=== PATIENT | female | born 1965 | race Caucasian/White ===

== ENCOUNTER 2024-07-14 10:52 | Inpatient (IN) | payer BC, SELFPAY ==
[2024-07-14] VITALS (8 sets, daily range): BP systolic 120–131; BP diastolic 47–76; PULSE 112–122; RESP 16–22; TEMP 36.2–36.6; O2SAT 93–97; BMI 25.4; BMI 25.9
--- NOTE | ~2024-07-14 | XR_ITS ---
XR chest 2V 07/14/2024 12:06 Indication: Redness of breath, cough and congestion Procedure: 2 view chest Comparison: No prior studies for comparison. Findings: Left upper lobe pneumonia. Heart size normal. Right lung clear. No pleural effusion or pneu mothorax. Impression: 1: Left upper lobe pneumonia. Reviewed, dictated and finalized at location B. Impression: 1: Left upper lobe pneumonia.
--- NOTE | 2024-07-14 11:00 | ECG_ITS ---
Test Date: 2024-07-14 11:04:56 Measurements Intervals [place] Rate: 110 P: 53 MN: 128 QRS: -42 QRSD: 99 T: 69 QT: 328 QTc: 444 Interpretive Statements SINUS TACHYCARDIA POSSIBLE LEFT ATRIAL ENLARGEMENT [-0.1mV P WAVE IN V1/V2] MARKED LEFT AXIS DEVIATION [QRS AXIS < -30] POSSIBLE ANTERIOR MYOCARDIAL INFARCTION , PROBABLY OLD [30 ms Q WAVE IN V3/V4, OR R < 0.2 mV IN V4] No previous ECG available for comparison Electronically Signed On 07-14-2024 13:44:44 CDT by Farooq Shea M.D.
[2024-07-14 11:19] LABS: Basophils Absolute Auto 0.1 K/mm3 (0.0-0.1); Basophils Percent Auto 0.6 % (0.2-1.2); Hematocrit 41.8 % (37.0-47.0); Hemoglobin 14.4 g/dL (12.0-15.0); Immature Granulocyte Absolute 0.06 K/mm3 (0.00-0.031); Immature Granulocyte Percent A 0.7 % (0-0.5); Lymphocytes Absolute Auto 0.93 K/mm3 (0.9-3.2); Mean Corpuscular HGB Conc 34.4 g/dl (32-36); Mean Corpuscular Hemoglobin 29.1 pg (26-34); Mean Corpuscular Volume 84.4 fl (80-100); Mean Platelet Volume 10.3 fl (7.4-10.4); Monocytes Absolute Auto 0.6 K/mm3 (0.1-0.6); Monocytes Percent Auto 7.2 % (2.6-8.5); Neutrophils Absolute Auto 6.8 K/mm3 (1.3-6.7); Neutrophils Percent Auto 80.5 % (45.5-73.1); Platelet Count Result 284 k/mm3 (150-375); Red Blood Count 4.95 M/mm3 (4.2-5.4); Red Cell Distribution Width 13.2 % (11.5-14.5); White Blood Count 8.5 K/mm3 (4.5-10.0)
[2024-07-14 11:30] LABS: Alanine Aminotransferase 61 U/L (6-35); Albumin Level 4.5 g/dL (3.5-5.1); Alkaline Phosphatase 130 U/L (38-126); Anion Gap 13 mmol/L (4-12); Aspartate Amino Transferase 64 U/L (14-36); Bilirubin,Total 0.7 mg/dL (0.2-1.3); Blood Urea Nitrogen 14 mg/dL (7-17); Carbon Dioxide 29 mmol/L (22-30); Chloride 87 mmol/L (98-107); Estimated CRCL calculation 61 ml/min; Estimated Glomerular Filt Rate > 60; Glucose 318 mg/dL (65-110); Sodium 129 mmol/L (137-145)
--- NOTE | 2024-07-14 13:59 | ED.SOB ---
HPI - SOB/Dyspnea General Chief Complaint: Shortness of Breath/Dyspnea Stated Complaint: cold sx, fever sent by urgent care Time Seen by Provider: 07/14/24 13:37 History of Present Illness HPI Narrative: 58-year-old female presenting with cough and shortness of breath. Patient states that for the last week or so she has been coughing and she has had decreased appetite. States that she has lost 5+ lb is she is simply not wanted to eat. She feels generally weak as well. She went to urgent care today and was found to be tachycardic in the 120s so she was advised to come to the ER. She denies any pain. No further complaints. Related Data Home Medications Medication Instructions Recorded Confirmed atorvastatin 10 mg tablet 10 mg PO HS 03/02/22 07/14/24 dulaglutide 1.5 mg/0.5 mL 1.5 mg subcut WEEKLY 03/02/22 07/14/24 subcutaneous pen injector (Trulicity) lisinopril 20 1 tablet PO BID 03/02/22 07/14/24 mg-hydrochlorothiazide 12.5 mg tablet metformin 500 mg tablet,extended 500 mg PO QACBREAK 03/02/22 07/14/24 release 24 hr sitagliptin phosphate 25 mg tablet 25 mg PO DAILY 06/16/23 07/14/24 (Januvia) acetaminophen 500 mg tablet 1,000 mg PO Q8H PRN pain or fever 07/14/24 07/14/24 alendronate 70 mg tablet 70 mg PO WEEKLY 07/14/24 07/14/24 calcium 600 mg (as 1 tablet PO DAILY 07/14/24 07/14/24 carbonate)-vitamin D3 10 mcg (400 unit) tablet metformin 500 mg tablet,extended 1,500 mg PO QACDINNER 07/14/24 07/14/24 release 24 hr multivit with minerals-iron 18 1 tablet PO DAILY 07/14/24 07/14/24 mg-folic ac 400 mcg-vit K 25 mcg tablet (Adults Multivitamin) Allergies Allergy/AdvReac Type Severity Reaction Status Date / Time Penicillins Allergy Mild HIVES Verified 06/16/23 07:58 Review of Systems Review of Systems: All systems reviewed & are unremarkable except as noted in HPI and below PMFSH Past Medical History Medical History (Updated 07/15/24 @ 16:40 by Vickie Hendrix MD) Anemia Dyslipidemia Heart murmur Hypertension Osteopenia Type 2 diabetes mellitus Surgical History Surgical History History of x2 1986&1987 History of dilation and curettage 03/12/09 dx hscope/d&c--menorrhagia, uterine leiomyomata History of hysterectomy, supracervical abdominal (subtotal) (05/16/09) abdominal supracx hyst w/LSO--leiomyomata, adenomyosis Family History Family History Father Heart disease Diabetes mellitus Hypertension Cerebrovascular accident Malignant neoplasm of lung Grandparent Acute myocardial infarction maternal grandfather Mother Malignant lymphoma Social History Social History (Updated 07/14/24 @ 17:27 by Teri Wisdom PA-C) Social History: Surrogate medical decision maker: Yassine Pang, spouse. Code status: Full code. Smoking status: Never smoker Second hand tobacco smoke exposure: No Alcohol intake: never Substance use: never Substance use type: does not use Do You Feel Safe in your Home?: Yes Lack of Transportation: No Lack of Food: Never True Current Housing: I Have Housing Concerned About Future Housing: No Difficulty Paying Gas/Electric Bills: No Difficulty Paying for Meds: No Currently Unemployed: No Education: High School Diploma/GED Difficulty w/ Childcare or Family Care: No Spiritual care concerns: No Exam Narrative: GENERAL: Ill-appearing, no acute distress, pleasant cooperative HEAD: Normocephalic, atraumatic. EYES: PERRLA and EOMI. ENT: Mucous membranes tacky NECK: Supple. CHEST: No respiratory distress. +adventitious sounds bilateral bases HEART: tachycardic, regular rhythm ABDOMEN: Soft, nontender, nondistended EXTREMITIES: Normal range of motion. No edema. SKIN: Warm, dry, no rash. NEURO: Alert and oriented x3. PSYCH: Normal mood and affect. Course Vit
[2024-07-14] MEDS: POTASSIUM CHLORIDE 20 MEQ PACKET (FOR LIQUID) 40 MEQ PO (14:20)
[2024-07-14] MEDS: SODIUM CHLORIDE 0.9% IV 1,000 ML 999 ML IV CONT ×2 (14:20)
[2024-07-14] MEDS: DOXYCYCLINE 100 MG/NS 100 ML 100 MG/100 ML BAG IVPB (15:21)
[2024-07-14] MEDS: POTASSIUM CHLORIDE 20 MEQ ER TABLET 40 MEQ PO (17:10)
--- NOTE | 2024-07-14 17:15 | PM.IMHP ---
H&P: HPI History of Present Illness Date/Time: 07/14/24 17:15 Chief Complaint: Shortness of breath, fever, tachycardia. Narrative: This is a 58-year-old female with hypertension, dyslipidemia, and type 2 diabetes presented to the emergency department from urgent care with shortness of breath, fever, and tachycardia. The patient provides the following history. She has not been feeling well for about a week with symptoms to include generalized malaise and weakness, cough, shortness of breath, and poor appetite. Her fever has been as high as 102? F. She went to urgent care today where she tested negative for COVID and influenza and she was directed to the emergency department as she was tachycardic. In the ED: Vital signs on arrival include a temperature of 97.6?, blood pressure 130/61, pulse 112, respiratory rate 17, pulse ox 97% on room air. Labs were significant for WBC count of 8.5, sodium 129, potassium 3.0, chloride 87, anion gap 13, BUN 14, creatinine 0.60, glucose 318, AST 64, ALT 61, alkaline phosphatase 130. Chest x-ray showed left upper lobe pneumonia. EKG interpretation per the tumbling and rolling supervisor: Sinus tachycardia, possible left atrial enlargement, marked left axis deviation, possible anterior myocardial infarction, probably old. Review of Systems Review of Systems: 12 systems were reviewed and are negative except for as per HPI. [facility] Past Medical History Medical History (Updated 07/14/24 @ 17:23 by Teri Wisdom PA-C) Anemia Dyslipidemia Heart murmur Hypertension Osteopenia Type 2 diabetes mellitus Surgical History Surgical History History of x2 1986&1987 History of dilation and curettage 03/12/09 dx hscope/d&c--menorrhagia, uterine leiomyomata History of hysterectomy, supracervical abdominal (subtotal) (05/16/09) abdominal supracx hyst w/LSO--leiomyomata, adenomyosis Family History Family History Father Heart disease Diabetes mellitus Hypertension Cerebrovascular accident Malignant neoplasm of lung Grandparent Acute myocardial infarction maternal grandfather Mother Malignant lymphoma Social History Social History (Updated 07/14/24 @ 17:27 by Teri Wisdom PA-C) Social History: Surrogate medical decision maker: Yassine Pang, spouse. Code status: Full code. Smoking status: Never smoker Second hand tobacco smoke exposure: No Alcohol intake: never Substance use: never Substance use type: does not use Lack of Transportation: No Lack of Food: Never True Current Housing: I Have Housing Concerned About Future Housing: No Difficulty Paying Gas/Electric Bills: No Difficulty Paying for Meds: No Currently Unemployed: No Education: High School Diploma/GED Difficulty w/ Childcare or Family Care: No Meds Home Medications and Allergies Home Medications Medication Instructions Recorded Confirmed Type atorvastatin 10 mg tablet 10 mg PO DAILY 03/02/22 06/16/23 History dulaglutide 1.5 mg/0.5 mL 1.5 mg subcut WEEKLY 03/02/22 06/16/23 History subcutaneous pen injector (Trulicity) lisinopril 20 1 tablet PO DAILY 03/02/22 06/16/23 History mg-hydrochlorothiazide 12.5 mg tablet metformin 500 mg tablet,extended 500 mg PO DAILY 03/02/22 06/16/23 History release 24 hr sitagliptin phosphate 25 mg tablet 25 mg PO DAILY 06/16/23 06/16/23 History (Januvia) Allergies Allergy/AdvReac Type Severity Reaction Status Date / Time Penicillins Allergy Mild HIVES Verified 06/16/23 07:58 Vital Signs Vital Signs - 24 hr 07/14/24 10:54 07/14/24 14:16 07/14/24 14:18 Temperature 97.6 F 97.9 F Pulse Rate 112 H 122 H Respiratory Rate 17 20 Blood Pressure 130/61 120/66 Pulse Oximetry 97 96 Oxygen Delivery Room Air Room Air 07/14/24 14:45 07/14/24 15:53 Temperature Pulse Rate 114 H 117 H Respiratory R
--- NOTE | 2024-07-14 17:36 | ADMGEN ---
This patient, Cora Pang, was admitted to Medical Room 346-01. Patient/family oriented to hospital policies and general routines including ID bracelet, bed and alarms, visiting hours, pain management, procedures, bathroom and other care routines, personal items, smoking policy, room service/diet, and visiting hours. Information on how to activate the Rapid Response Team has been discussed. Patient/Family are encouraged to report perceived risks to care and to ask questions if they do not understand what they are told or what they should do.
[2024-07-14 18:28] LABS: Glucose Point of Care 219 mg/dl (65-105)
[2024-07-14] MEDS: ACETAMINOPHEN 325 MG TABLET 650 MG PO (18:36)
[2024-07-14 19:06] LABS: Influenza A QL RT-PCR Negative (Negative); Influenza B QL RT-PCR Negative (Negative); RSV RNA, RT-PCR Negative (Negative); SARS-CoV-2 RNA PCR Negative (Negative)
[2024-07-14 19:14] LABS: Lactic Acid Reflex 1.4 mmol/L (0.7-2.0)
[2024-07-14 19:21] LABS: Anion Gap 10 mmol/L (4-12); Blood Urea Nitrogen 11 mg/dL (7-17); Calcium 7.8 mg/dL (8.4-10.2); Carbon Dioxide 26 mmol/L (22-30); Chloride 93 mmol/L (98-107); Estimated CRCL calculation 99 ml/min; Estimated Glomerular Filt Rate > 60; Glucose 212 mg/dL (65-110); Potassium 3.5 mmol/L (3.4-5.0); Sodium 129 mmol/L (137-145)
[2024-07-14 19:45] LABS: MRSA (PCR) NOT DETECTED (NOT DETECTE)
[2024-07-14 19:46] LABS: Hepatitis B Surface Antigen Negative (Negative)
[2024-07-14 19:52] LABS: HAV RESULT Negative (Negative); Hepatitis B Core IgM Result Negative (Negative)
[2024-07-14 19:58] LABS: Hemoglobin A1C 9.4 % (<5.7)
[2024-07-14 20:04] LABS: Hepatitis C Virus Antibody Negative (Negative)
[2024-07-14 20:16] LABS: Thyroid Stimulating Hormone Reflex 0.373 uIU/mL (0.465-4.68)
[2024-07-14 21:58] LABS: Free T4 Free Thyroxine Reflex 1.33 ng/dL (0.78-2.19)
[2024-07-14] MEDS: INSULIN ASPART (*BKC) 100 UNITS/ML 8 UNITS SUB-Q (22:06)
[2024-07-14] MEDS: SODIUM CHLORIDE 0.9% IV 1,000 ML 80 ML IV CONT (22:07)
[2024-07-14] MEDS: ATORVASTATIN 10 MG TABLET PO (22:08)
[2024-07-14] MEDS: lisinopriL 20 MG TABLET PO (22:08)
[2024-07-14] MEDS: guaiFENesin 12 HR 600 MG TABCR 1200 MG PO (22:08)
[2024-07-14 23:01] LABS: Total Triiodothyronine (T3) 0.97 NG/ML (0.97-1.69)
[2024-07-15] VITALS (9 sets, daily range): BP systolic 130–151; BP diastolic 59–62; PULSE 95–118; RESP 16–19; TEMP 36.4–37; O2SAT 94–96
[2024-07-15] MEDS: DEXTROMETHORPHAN POLISTIREX 60 MG/10 ML SYRINGE PO ×2 (01:45→15:32)
[2024-07-15] MEDS: DOXYCYCLINE HYCLATE 100 MG TABLET PO ×2 (01:46→15:30)
[2024-07-15 05:51] LABS: Hematocrit 34.6 % (37.0-47.0); Hemoglobin 11.6 g/dL (12.0-15.0); Mean Corpuscular HGB Conc 33.5 g/dl (32-36); Mean Corpuscular Hemoglobin 28.8 pg (26-34); Mean Corpuscular Volume 85.9 fl (80-100); Platelet Count Result 232 k/mm3 (150-375); Red Blood Count 4.03 M/mm3 (4.2-5.4); Red Cell Distribution Width 13.3 % (11.5-14.5); White Blood Count 6.4 K/mm3 (4.5-10.0)
[2024-07-15 06:03] LABS: Alanine Aminotransferase 51 U/L (6-35); Albumin Level 3.5 g/dL (3.5-5.1); Alkaline Phosphatase 119 U/L (38-126); Anion Gap 9 mmol/L (4-12); Aspartate Amino Transferase 58 U/L (14-36); Bilirubin,Total 0.7 mg/dL (0.2-1.3); Blood Urea Nitrogen 10 mg/dL (7-17); Calcium 7.7 mg/dL (8.4-10.2); Carbon Dioxide 24 mmol/L (22-30); Chloride 96 mmol/L (98-107); Estimated CRCL calculation 98 ml/min; Estimated Glomerular Filt Rate > 60; Glucose 214 mg/dL (65-110); Potassium 3.4 mmol/L (3.4-5.0); Sodium 129 mmol/L (137-145)
--- NOTE | 2024-07-15 08:07 | P.PNIM_ITS ---
Progress Note: A&P Assessment and Plan (1) Left upper lobe pneumonia: Code(s): J18.9 - Pneumonia, unspecified organism Status: Acute Assessment and Plan: On doxycycline and ceftriaxone Sputum for culture pending Blood cultures pending (2) Tachycardia: Code(s): R00.0 - Tachycardia, unspecified Status: Acute Assessment and Plan: Likely secondary to infection Patient not on home beta blockers Telemetry monitoring EKG showing sinus rhythm IVF for hydration (3) Electrolyte abnormality: Code(s): E87.8 - Other disorders of electrolyte and fluid balance, not elsewhere classified Status: Acute Assessment and Plan: Daily BMP Replete if needed (4) Elevated transaminase level: Code(s): R74.01 - Elevation of levels of liver transaminase levels Status: Acute Assessment and Plan: abdominal exam is benign and these can just be monitored as an outpatient (5) Type 2 diabetes mellitus: Code(s): E11.9 - Type 2 diabetes mellitus without complications Status: Acute Assessment and Plan: Hemoglobin A1c 9.4 Hold home medications Long-acting and SSI Goal for blood sugars appear under 200 during hospitalization Diabetic diet informatics educator Patient will need to follow up her analytical clerk for medication adjustments (6) Hypertension: Code(s): I10 - Essential (primary) hypertension Status: Acute Assessment and Plan: Restart home medications Holding home hydrochlorothiazide due to dehydration (7) Dyslipidemia: Code(s): E78.5 - Hyperlipidemia, unspecified Status: Acute Assessment and Plan: Restart her home medications Plan She has left upper lobe pneumonia for which she has been started on azithromycin and ceftriaxone. Attempt sputum for culture. Check Legionella pneumococcal antigens as well as mycoplasma IgM. Potassium will be replaced and monitored. Hold hydrochlorothiazide for now. AST and ALT are a bit elevated but her abdominal exam is benign and these can just be monitored as an outpatient. Time Spent With Patient Time with patient: Greater than 35 minutes Subjective Date/time seen: 07/15/24 08:07 Interval history: 58-year-old female with hypertension, dyslipidemia, and type 2 diabetes presented to the emergency department from urgent care with shortness of breath, fever, and tachycardia. Found to have left lower lobe pneumonia. Patient given 2 L of IV fluids in the ED yesterday patient still tachycardic this AM, IVF ordered On Doxycycline and ceftriaxone Review of Systems Review of Systems: 12 systems were reviewed and are negativ e except for as per HPI. Objective Data Vital Signs Vital Signs: Vital Signs - 24 hr 07/14/24 10:54 07/14/24 1
--- NOTE | 2024-07-15 08:07 | PM.IMPN ---
Progress Note: A&P Assessment and Plan (1) Left upper lobe pneumonia: Code(s): J18.9 - Pneumonia, unspecified organism Status: Acute Assessment and Plan: On doxycycline and ceftriaxone Sputum for culture pending Blood cultures pending (2) Tachycardia: Code(s): R00.0 - Tachycardia, unspecified Status: Acute Assessment and Plan: Likely secondary to infection Patient not on home beta blockers Telemetry monitoring EKG showing sinus rhythm IVF for hydration (3) Electrolyte abnormality: Code(s): E87.8 - Other disorders of electrolyte and fluid balance, not elsewhere classified Status: Acute Assessment and Plan: Daily BMP Replete if needed (4) Elevated transaminase level: Code(s): R74.01 - Elevation of levels of liver transaminase levels Status: Acute Assessment and Plan: abdominal exam is benign and these can just be monitored as an outpatient (5) Type 2 diabetes mellitus: Code(s): E11.9 - Type 2 diabetes mellitus without complications Status: Acute Assessment and Plan: Hemoglobin A1c 9.4 Hold home medications Long-acting and SSI Goal for blood sugars appear under 200 during hospitalization Diabetic diet community health educator Patient will need to follow up her emissions testing technician for medication adjustments (6) Hypertension: Code(s): I10 - Essential (primary) hypertension Status: Acute Assessment and Plan: Restart home medications Holding home hydrochlorothiazide due to dehydration (7) Dyslipidemia: Code(s): E78.5 - Hyperlipidemia, unspecified Status: Acute Assessment and Plan: Restart her home medications Plan She has left upper lobe pneumonia for which she has been started on azithromycin and ceftriaxone. Attempt sputum for culture. Check Legionella pneumococcal antigens as well as mycoplasma IgM. Potassium will be replaced and monitored. Hold hydrochlorothiazide for now. AST and ALT are a bit elevated but her abdominal exam is benign and these can just be monitored as an outpatient. Time Spent With Patient Time with patient: Greater than 35 minutes Subjective Date/time seen: 07/15/24 08:07 Interval history: 58-year-old female with hypertension, dyslipidemia, and type 2 diabetes presented to the emergency department from urgent care with shortness of breath, fever, and tachycardia. Found to have left lower lobe pneumonia. Patient given 2 L of IV fluids in the ED yesterday patient still tachycardic this AM, IVF ordered On Doxycycline and ceftriaxone Review of Systems Review of Systems: 12 systems were reviewed and are negative except for as per HPI. Objective Data Vital Signs Vital Signs: Vital Signs - 24 hr 07/14/24 10:54 07/14/24 14:16 07/14/24 14:18 Temperature 97.6 F 97.9 F Pulse Rate 112 H 122 H Respiratory Rate 17 20 Blood Pressure 130/61 120/66 Pulse Oximetry 97 96 Oxygen Delivery Room Air Room Air 07/14/24 14:45 07/14/24 15:53 07/14/24 17:16 Temperature Pulse Rate 114 H 117 H 116 H Respiratory Rate 22 H 22 H 16 Blood Pressure 126/64 126/76 Pulse Oximetry 95 93 96 Oxygen Delivery 07/14/24 18:30 07/14/24 20:00 07/14/24 22:26 Temperature 97.2 F L Pulse Rate 120 H Respiratory Rate Blood Pressure Pulse Oximetry Oxygen Delivery Room Air 07/14/24 22:40 07/14/24 20:00 07/15/24 00:00 Temperature 97.2 F L Pulse Rate 113 H 107 H Respiratory Rate 16 Blood Pressure 131/47 L Pulse Oximetry 93 Oxygen Delivery Room Air 07/15/24 04:40 07/15/24 05:32 Temperature 97.6 F Pulse Rate 111 H 117 H Respiratory Rate 16 Blood Pressure 151/62 H Pulse Oximetry 94 Oxygen Delivery Intake/Output Intake/Output: Intake & Output 07/12/24 07/13/24 07/14/24 07/15/24 23:59 23:59 23:59 23:59 Intake Total 2372 600 Output Total 700 700 Balance 1672 -100 Meds/Results
[2024-07-15 08:13] LABS: Glucose Point of Care 377 mg/dl (65-105)
[2024-07-15 08:13] LABS: Glucose Point of Care 146 mg/dl (65-105)
[2024-07-15 08:33] LABS: Glucose Point of Care 205 mg/dl (65-105)
[2024-07-15] MEDS: MULTIVITAMINS /C LUTEIN (CENTRUM SILVER) TABLET *BKC 1 TAB PO (08:59)
[2024-07-15] MEDS: ENOXAPARIN 40 MG/0.4 ML SYRINGE SUB-Q (08:59)
[2024-07-15] MEDS: CALCIUM/VITAMIN D 500 MG/5 MCG (200 I.U.) TABLET PO (08:59)
[2024-07-15] MEDS: guaiFENesin 12 HR 600 MG TABCR 1200 MG PO ×2 (08:59→21:22)
[2024-07-15] MEDS: lisinopriL 20 MG TABLET PO ×2 (09:00→21:22)
[2024-07-15] MEDS: SITagliptin PHOSPHATE 25 MG TABLET PO (09:00)
[2024-07-15] MEDS: INSULIN GLARGINE (*BKC) 100 UNITS/ML 9 UNITS SUB-Q (09:02)
[2024-07-15] MEDS: ACETAMINOPHEN 325 MG TABLET 650 MG PO ×2 (09:08→21:28)
[2024-07-15 12:13] LABS: Glucose Point of Care 206 mg/dl (65-105)
[2024-07-15] MEDS: INSULIN ASPART (*BKC) 100 UNITS/ML SUB-Q ×3 (12:31→21:22)
[2024-07-15] MEDS: SODIUM CHLORIDE 0.9% IV 1,000 ML 100 ML IV CONT (13:33)
[2024-07-15 17:30] LABS: Glucose Point of Care 206 mg/dl (65-105)
[2024-07-15] MEDS: ATORVASTATIN 10 MG TABLET PO (21:22)
[2024-07-16] VITALS: PULSE 92
[2024-07-16 01:28] LABS: Glucose Point of Care 270 mg/dl (65-105)
[2024-07-16] MEDS: DOXYCYCLINE HYCLATE 100 MG TABLET PO (03:37)
[2024-07-16 04:00] VITALS: PULSE 92
[2024-07-16 05:53] VITALS: BP 129/53; PULSE 93; RESP 16; TEMP 36.1; O2SAT 94
[2024-07-16] MEDS: DEXTROMETHORPHAN POLISTIREX 60 MG/10 ML SYRINGE PO (06:16)
[2024-07-16 08:00] VITALS: PULSE 100
[2024-07-16 08:44] LABS: Glucose Point of Care 204 mg/dl (65-105)
--- NOTE | 2024-07-16 08:44 | P.PNIM_ITS ---
Progress Note: A&P Assessment and Plan (1) Left upper lobe pneumonia: Code(s): J18.9 - Pneumonia, unspecified organism Status: Acute Assessment and Plan: On doxycycline and ceftriaxone Sputum for culture pending Blood cultures pending (2) Tachycardia: Code(s): R00.0 - Tachycardia, unspecified Status: Acute Assessment and Plan: Likely secondary to infection Patient not on home beta blockers Telemetry monitoring EKG showing sinus rhythm IVF for hydration (3) Electrolyte abnormality: Code(s): E87.8 - Other disorders of electrolyte and fluid balance, not elsewhere classified Status: Acute Assessment and Plan: Daily BMP Replete if needed (4) Elevated transaminase level: Code(s): R74.01 - Elevation of levels of liver transaminase levels Status: Acute Assessment and Plan: abdominal exam is benign and these can just be monitored as an outpatient (5) Type 2 diabetes mellitus: Code(s): E11.9 - Type 2 diabetes mellitus without complications Status: Acute Assessment and Plan: Hemoglobin A1c 9.4 Hold home medications Long-acting and SSI Goal for blood sugars appear under 200 during hospitalization Diabetic diet telehealth nurse educator Patient will need to follow up her wash crew person for medication adjustments (6) Hypertension: Code(s): I10 - Essential (primary) hypertension Status: Acute Assessment and Plan: Restart home medications Holding home hydrochlorothiazide due to dehydration (7) Dyslipidemia: Code(s): E78.5 - Hyperlipidemia, unspecified Status: Acute Assessment and Plan: Restart her home medications Plan She has left upper lobe pneumonia for which she has been started on azithromycin and ceftriaxone. Attempt sputum for culture. Check Legionella pneumococcal antigens as well as mycoplasma IgM. Potassium will be replaced and monitored. Hold hydrochlorothiazide for now. AST and ALT are a bit elevated but her abdominal exam is benign and these can just be monitored as an outpatient. Subjective Date/time seen: 07/16/24 08:44 Interval history: 58-year-old female with hypertension, dyslipidemia, and type 2 diabetes presented to the emergency department from urgent care with shortness of breath, fever, and tachycardia. Found to have left lower lobe pneumonia. Blood cultures NGTD, On Doxycycline and ceftriaxone Patient's blood sugars are still above 200, long-acting insulins adjusted Review of Systems Review of Systems: 12 systems were reviewed and are negativ e except for as per HPI. Objective Data Vital Signs Vital Signs: Vital Signs - 24 hr 07/15/24 14:40 07/15/24 12:00 07/15/24 16:00 Temperature 98.2 F Pulse Rate 106 H 95
--- NOTE | 2024-07-16 08:44 | PM.IMPN ---
Progress Note: A&P Assessment and Plan (1) Left upper lobe pneumonia: Code(s): J18.9 - Pneumonia, unspecified organism Status: Acute Assessment and Plan: On doxycycline and ceftriaxone Sputum for culture pending Blood cultures pending (2) Tachycardia: Code(s): R00.0 - Tachycardia, unspecified Status: Acute Assessment and Plan: Likely secondary to infection Patient not on home beta blockers Telemetry monitoring EKG showing sinus rhythm IVF for hydration (3) Electrolyte abnormality: Code(s): E87.8 - Other disorders of electrolyte and fluid balance, not elsewhere classified Status: Acute Assessment and Plan: Daily BMP Replete if needed (4) Elevated transaminase level: Code(s): R74.01 - Elevation of levels of liver transaminase levels Status: Acute Assessment and Plan: abdominal exam is benign and these can just be monitored as an outpatient (5) Type 2 diabetes mellitus: Code(s): E11.9 - Type 2 diabetes mellitus without complications Status: Acute Assessment and Plan: Hemoglobin A1c 9.4 Hold home medications Long-acting and SSI Goal for blood sugars appear under 200 during hospitalization Diabetic diet account processor Patient will need to follow up her keno manager for medication adjustments (6) Hypertension: Code(s): I10 - Essential (primary) hypertension Status: Acute Assessment and Plan: Restart home medications Holding home hydrochlorothiazide due to dehydration (7) Dyslipidemia: Code(s): E78.5 - Hyperlipidemia, unspecified Status: Acute Assessment and Plan: Restart her home medications Plan She has left upper lobe pneumonia for which she has been started on azithromycin and ceftriaxone. Attempt sputum for culture. Check Legionella pneumococcal antigens as well as mycoplasma IgM. Potassium will be replaced and monitored. Hold hydrochlorothiazide for now. AST and ALT are a bit elevated but her abdominal exam is benign and these can just be monitored as an outpatient. Subjective Date/time seen: 07/16/24 08:44 Interval history: 58-year-old female with hypertension, dyslipidemia, and type 2 diabetes presented to the emergency department from urgent care with shortness of breath, fever, and tachycardia. Found to have left lower lobe pneumonia. Blood cultures NGTD, On Doxycycline and ceftriaxone Patient's blood sugars are still above 200, long-acting insulins adjusted Review of Systems Review of Systems: 12 systems were reviewed and are negative except for as per HPI. Objective Data Vital Signs Vital Signs: Vital Signs - 24 hr 07/15/24 14:40 07/15/24 12:00 07/15/24 16:00 Temperature 98.2 F Pulse Rate 106 H 95 104 H Respiratory Rate 19 Blood Pressure 130/59 L Pulse Oximetry 96 Oxygen Delivery 07/15/24 20:00 07/15/24 20:00 07/15/24 22:00 Temperature 98.6 F Pulse Rate 118 H 108 H Respiratory Rate 16 Blood Pressure 135/59 L Pulse Oximetry 95 Oxygen Delivery Room Air 07/16/24 00:00 07/16/24 04:00 07/16/24 05:53 Temperature 97.0 F L Pulse Rate 92 92 93 Respiratory Rate 16 Blood Pressure 129/53 L Pulse Oximetry 94 Oxygen Delivery Intake/Output Intake/Output: Intake & Output 07/13/24 07/14/24 07/15/24 07/16/24 23:59 23:59 23:59 23:59 Intake Total 2372 3530 600 Output Total 700 700 Balance 1672 2830 600 Meds/Results Medications: Active Medications Generic Name Dose Route Start Last Admin Trade Name Freq PRN Reason Stop Dose Admin Acetaminophen 650 mg 07/14/24 17:23 07/15/24 21:28 Acetaminophen 325 Mg Tablet PO 650 mg Q6H PRN Administration Mild Pain (1-3) or Fever Albuterol/Ipratropium 3 ml 07/14/24 17:23 Ipratropium 0.5 Mg/Albuterol Sulfate 2.5 Mg Ampul.Neb 3 Ml INHALATION Q6HRT PRN Shortness Of Breath Or Wheezing Atorvas
[2024-07-16] MEDS: SITagliptin PHOSPHATE 25 MG TABLET PO (09:09)
[2024-07-16] MEDS: ENOXAPARIN 40 MG/0.4 ML SYRINGE SUB-Q (09:09)
[2024-07-16] MEDS: guaiFENesin 12 HR 600 MG TABCR 1200 MG PO (09:10)
[2024-07-16] MEDS: CALCIUM/VITAMIN D 500 MG/5 MCG (200 I.U.) TABLET PO (09:10)
[2024-07-16] MEDS: lisinopriL 20 MG TABLET PO (09:10)
[2024-07-16] MEDS: INSULIN ASPART (*BKC) 100 UNITS/ML SUB-Q (09:10)
[2024-07-16] MEDS: MULTIVITAMINS /C LUTEIN (CENTRUM SILVER) TABLET *BKC 1 TAB PO (09:10)
[2024-07-16] MEDS: INSULIN GLARGINE (*BKC) 100 UNITS/ML 12 UNITS SUB-Q (09:12)
[2024-07-16 09:26] LABS: Hematocrit 35.4 % (37.0-47.0); Hemoglobin 12.2 g/dL (12.0-15.0); Mean Corpuscular HGB Conc 34.5 g/dl (32-36); Mean Corpuscular Hemoglobin 29.3 pg (26-34); Mean Corpuscular Volume 84.9 fl (80-100); Mean Platelet Volume 9.8 fl (7.4-10.4); Platelet Count Result 278 k/mm3 (150-375); Red Blood Count 4.17 M/mm3 (4.2-5.4); Red Cell Distribution Width 13.2 % (11.5-14.5); White Blood Count 5.4 K/mm3 (4.5-10.0)
[2024-07-16 09:33] LABS: Anion Gap 10 mmol/L (4-12); Blood Urea Nitrogen 6 mg/dL (7-17); Calcium 8.4 mg/dL (8.4-10.2); Carbon Dioxide 26 mmol/L (22-30); Chloride 99 mmol/L (98-107); Estimated CRCL calculation 98 ml/min; Estimated Glomerular Filt Rate > 60; Glucose 194 mg/dL (65-110); Potassium 3.2 mmol/L (3.4-5.0); Sodium 135 mmol/L (137-145)
--- NOTE | 2024-07-16 10:36 | PM.DS ---
DS: Admitting Diagnosis Discharge Date 07/16/2024 Admitting Diagnosis Community acquired pneumonia DS: Discharge Diagnosis Discharge Diagnosis (1) Left upper lobe pneumonia: Code(s): J18.9 - Pneumonia, unspecified organism Status: Acute Assessment and Plan: On doxycycline and ceftriaxone Sputum for culture pending Blood cultures pending (2) Tachycardia: Code(s): R00.0 - Tachycardia, unspecified Status: Acute Assessment and Plan: Likely secondary to infection Patient not on home beta blockers Telemetry monitoring EKG showing sinus rhythm IVF for hydration (3) Electrolyte abnormality: Code(s): E87.8 - Other disorders of electrolyte and fluid balance, not elsewhere classified Status: Acute Assessment and Plan: Daily BMP Replete if needed (4) Elevated transaminase level: Code(s): R74.01 - Elevation of levels of liver transaminase levels Status: Acute Assessment and Plan: abdominal exam is benign and these can just be monitored as an outpatient (5) Type 2 diabetes mellitus: Code(s): E11.9 - Type 2 diabetes mellitus without complications Status: Acute Assessment and Plan: Hemoglobin A1c 9.4 Hold home medications Long-acting and SSI Goal for blood sugars appear under 200 during hospitalization Diabetic diet certified breastfeeding educator Patient will need to follow up her commercial lines account executive for medication adjustments (6) Hypertension: Code(s): I10 - Essential (primary) hypertension Status: Acute Assessment and Plan: Restart home medications Holding home hydrochlorothiazide due to dehydration (7) Dyslipidemia: Code(s): E78.5 - Hyperlipidemia, unspecified Status: Acute Assessment and Plan: Restart her home medications Plan She has left upper lobe pneumonia for which she has been started on azithromycin and ceftriaxone. Attempt sputum for culture. Check Legionella pneumococcal antigens as well as mycoplasma IgM. Potassium will be replaced and monitored. Hold hydrochlorothiazide for now. AST and ALT are a bit elevated but her abdominal exam is benign and these can just be monitored as an outpatient. DS: Summary Hospital Course Reason for hospitalization: Community acquired pneumonia Hospital Course: The patient presented today for evaluation of fever, shortness of breath, and other symptoms as detailed in HPI. Labs, imaging, EKG, and all reports were personally reviewed. She has left upper lobe pneumonia for which she has been started on azithromycin and ceftriaxone. Attempt sputum for culture. Check Legionella pneumococcal antigens as well as mycoplasma IgM. Tachycardia is likely related to underlying infection. She does not meet sepsis criteria. Pulmonary embolism is considered given recent travel but seems unlikely by history. Sodium and chloride are both a bit low and she has been started on normal saline. Potassium will be replaced and monitored. Hold hydrochlorothiazide for now. AST and ALT are a bit elevated but her abdominal exam is benign and these can just be monitored as an outpatient. The evening before they came home (this Wednesday she started to feel unwell with dry cough, mild shortness of breath, sore throat, congestion, and headache. Appetite has been poor and food is just not tasting good. She has had a fever as high as 102? F. She is treating her symptoms at home with acetaminophen and [id number] cold and flu remedies. Due to lack of improvement she went to Urgent Care, was found to be tachycardic, and was directed to the emergency department. Her has mild URI symptoms as well. She does not think anyone else in her green party has been ill. She also denies chest pain, pleuritic pain, palpitations, vomiting, diarrhea, lower extremity edema, calf pain, rash, and joint swelling. Patient was started on doxycycline and ceftriaxone for community-acquired pneumonia, and
[2024-07-16] MEDS: POTASSIUM CHLORIDE 20 MEQ ER TABLET 40 MEQ PO (11:52)
--- NOTE | 2024-07-16 12:15 | PC.NURSE ---
Patient refused flu vaccine
[2024-07-19 16:33] LABS: Pneumococcal Antigen Urine NOT DETECTED
[2024-07-20 00:59] LABS: Legionella pneumophila Ag Ur NOT DETECTED
--- NOTE | 2024-07-20 07:27 | PC.NURSE ---
Urine Legionella and Pneumococcal are both non-reactive.
[2024-07-21 17:49] LABS: Mycoplasma IgM Antibody Titer 84 U/mL
--- NOTE | 2024-07-24 07:51 | PC.NURSE ---
Blood cx are negative for 07/14. Urine Mycoplasm is WNL at 84.
== END 2024-07-16 12:30 | disposition home or self-care (01) | DRG 195 ==
LOC: ANHED 14:28 → ANH3MED 17:06
PROVIDERS: Physician Assistant; Student in an Organized Health Care Education/Training Program; Admitting Provider Internal Medicine; Emergency Provider Emergency Medicine; PCP Family Medicine; Visit Provider Nurse Practitioner Gerontology
DX: J18.9 Pneumonia, unspecified organism (principal); R00.0 Tachycardia, unspecified; E87.8 Other disorders of electrolyte and fluid balance, not elsewhere classified; Z20.822 Contact with and (suspected) exposure to COVID-19; D64.9 Anemia, unspecified; E78.5 Hyperlipidemia, unspecified; M85.80 Other specified disorders of bone density and structure, unspecified site; I10 Essential (primary) hypertension; E87.6 Hypokalemia; E11.9 Type 2 diabetes mellitus without complications; R74.01 Elevation of levels of liver transaminase levels; E86.0 Dehydration; Z79.84 Long term (current) use of oral hypoglycemic drugs
CPT/HCPCS: 36415; 71046; 80048; 80053; 80074; 82948; 83036; 83605; 83735; 84439; 84443; 84480; 85025; 85027; 86738; 87040; 87449; 87637; 87641; 87899; 93005; 94667; 96361; 96365; 96367; 96372; 99285; A9270; G0378; J0696; J1650; J1815; J7030

== ENCOUNTER 2024-10-23 07:54 | Outpatient (CLI) | payer BC, SELFPAY ==
--- NOTE | ~2024-10-23 | US_ITS ---
EXAMINATION: US abdomen limited DATE: 10/23/2024 08:16 INDICATION: Liver enzymes above reference range TECHNIQUE: Multiple grayscale and Doppler ultrasound images of the abdomen were obtained. COMPARISON: None FINDINGS: The pancreatic head and body are normal in appearance. The pancreatic tail is not visualized. Liver has normal contour, with a smooth surface. There is increased parenchymal echogenicity and coarsened echotexture consistent with diffuse hepatic steatosis. 1.7 cm hypoechoic lesion along the posterior m argin of the left hepatic lobe. No intrahepatic biliary duct dilation suspected. Portal venous flow was seen in the hepatopetal, normal direction and has normal Doppler waveform. The gallbladder is nor mal in appearance. There is no cholelithiasis. The common bile duct measures 2 mm, which is normal. Sonographic Puri sign was reported as negative by the scouring machine operator. Right kidney demonstrates normal contour and echogenicity with no hydronephrosis. IMPRESSION: 1. Diffuse hepatic steatosis with 1.7 cm hypoechoic lesion most likely focal fat but would recommend further evaluation with pre and postcontrast MRI or CT for more definitive determination. 2. Normal gallbladder with no intrahepatic biliary ductal dilation. Reviewed, dictated and finalized at location B. R DRUM WORKER IMPRESSION: 1. Diffuse hepatic steatosis with 1.7 cm hypoechoic lesion most likely focal fa t but would recommend further evaluation with pre and postcontrast MRI or CT fo r more definitive determination. 2. Normal gallbladder with no intrahepatic biliary ductal dilation.
== END 2024-10-23 07:55 | disposition home or self-care (01) ==
LOC: MICIMG 07:55
PROVIDERS: PCP Nurse Practitioner Family; Visit Provider Nurse Practitioner Family
DX: R74.01 Elevation of levels of liver transaminase levels (principal); K76.0 Fatty (change of) liver, not elsewhere classified
CPT/HCPCS: 76705

== ENCOUNTER 2024-11-24 07:42 | Outpatient (CLI) | payer BC, SELFPAY | END 2024-11-24 07:43 | disposition home or self-care (01) | PROVIDERS: PCP Nurse Practitioner Family; Visit Provider Nurse Practitioner Family | DX: R93.2 Abnormal findings on diagnostic imaging of liver and biliary tract (principal); K76.0 Fatty (change of) liver, not elsewhere classified; D18.03 Hemangioma of intra-abdominal structures | CPT/HCPCS: 74183; A9577 ==

== ENCOUNTER 2024-12-01 02:13 | Day surgery (SDC) | payer BC, SELFPAY ==
[2024-11-20 13:24] VITALS: BMI 25.4
--- OUTSIDE RECORDS SUMMARY | 2024-12-01 02:16 | XMS_ITS | Referral Summary ---
Author Organization [facility] Address [address] [address] Care Team Providers Care Cattle Dehorner Name Role Phone Antoinette Hernandez MD Primary Care Provider Source Comments [facility],non-owned Affiliates and Associated Physician Practices is amultiple site organization consisting of ambulatory clinics and hospital sitesin [place], [place], [place] and [place]. This disclosure is being madepursuant to the Care Everywhere program and may not contain all information available regarding this patient. Last updated 18.[facility] Allergies Active Allergy Reactions Criticality Noted Date Comments Penicillins 09/21/2016 Medications * Be aware that medications may not be up to date on this document. Alwaysverify current medications with the patient. Medication Sig Dispensed Refills Start Date End Date Status METFORMIN HCL ER, MOD, PO Active SITagliptin Phosphate (JANUVIA PO) Active LISINOPRIL PO Active dulaglutide (TRULICITY) 1.5 MG/0.5ML injection Inject 1.5 mg subcutaneously every 7 days Active atorvastatin (LIPITOR) 10 MG tablet Take 10 mg by mouth at bedtime Active Immunizations Name Administration Dates Next Due Covid Kincast primary monoval ent 12+ yr 0.3mL Purple cap 11/15/2020,10/28/2020 Social History Tobacco Use Types Packs/Day Years Used Date Smoking Tobacco: Never Smokeless Tobacco: Never Sex and Gender Information Value Date Recorded Sex Assigned at Not on file Gender Identity Not on file Sexual Orientation Not on file Last Filed Vital Signs Vital Sign Reading Time Taken Comments Blood Pressure 138/72 10/26/2019 11:30 AM GORE SEAMER Pulse 96 10/26/2019 11:30 AM GORE SEAMER Temperature 36.7 C (98.1 F) 10/26/2019 11:30 AM GORE SEAMER Respiratory Rate 16 10/26/2019 11:30 AM GORE SEAMER Oxygen Saturation 96% 10/26/2019 11:30 AM GORE SEAMER Inhaled Oxygen Concentration - - Weight 59 kg (130 lb) 10/26/2019 11:30 AM GORE SEAMER Height 152.4 cm (5') 10/26/2019 11:30 AM GORE SEAMER Body Mass Index 25.39 10/26/2019 11:30 AM GORE SEAMER Plan of Treatment Not on file Care Teams Cattle Dehorner Relationship Specialty Start Date End Date Antoinette Hernandez MD [address] [place] [address] [address] [place] [phone] PCP - General Family Medicine 09/21/16
--- OUTSIDE RECORDS SUMMARY | 2024-12-01 02:16 | XMS_ITS | Clinical Summary ---
Author Organization [facility] Address [address] [place] [address] Care Team Providers Care Bridge Saw Operator Name Role Phone Antoinette Hernandez MD Primary Care Provider Source Comments [facility],non-owned Affiliates and Associated Physician Practices is amultiple site organization consisting of ambulatory clinics and hospital sitesin [place], [place], [place] and [place]. This disclosure is being madepursuant to the Care Everywhere program and may not contain all information available regarding this patient. Last updated 18.[facility] Allergies Active Allergy Reactions Criticality Noted Date [...] Active Immunizations Name Administration Dates Next Due CovNutshellMail primary monoval ent 12+ yr 0.3mL Purple cap 11/15/2020,10/28/2020 Social History Tobacco Use Types Packs/Day Years Used Date Smoking Tobacco: Never Smokeless Tobacco: Never Sex and Gender Information Value Date Recorded Sex Assigned at Not on file Gender Identity Not on file Sexual Orientation Not on file Last Filed Vital Signs Vital Sign Reading Time Taken Comments Blood Pressure 138/72 10/26/2019 11:30 AM COBBLER SOLE Pulse 96 10/26/2019 11:30 AM COBBLER SOLE Temperature 36.7 C (98.1 F) 10/26/2019 11:30 AM COBBLER SOLE Respiratory Rate 16 10/26/2019 11:30 AM COBBLER SOLE Oxygen Saturation 96% 10/26/2019 11:30 AM COBBLER SOLE Inhaled Oxygen Concentration - - Weight 59 kg (130 lb) 10/26/2019 11:30 AM COBBLER SOLE Height 152.4 cm (5') 10/26/2019 11:30 AM COBBLER SOLE Body Mass Index 25.39 10/26/2019 11:30 AM COBBLER SOLE Plan of Treatment Health Maintenance Due Date Last Done Comments COLOGUARD (AGES 45-75) - COL ON CA SCREENING 1963 COLON MONITORING 1963 COLONOSCOPY - COLON CA SCREENING 1963 CT COLONOGRAPHY - COLON CA SCREENING 1963 Colorectal Cancer Screening 1963 FIT - COLON CA SCREENING 1963 FLEX SIG - COLON CA SCREENING 1963 MAMMOGRAM 1963 PAP SMEAR 1963 HIV SCREENING 12/03/1978 HEPATITIS C SCREENING 11/29/1981 DTAP/TDAP/TD VACCINES (1 - Tdap) 12/03/1982 PNEUMOCOCCAL VACCINE 50+ (1 of 1 - PCV) 12/03/2013 ZOSTER VACCINE (1 of 2) 12/03/2013 COVID-19 VACCINE (3 - 2023-2 5 season) 2024 11/15/2020, 10/28/2020 INFLUENZA VACCINE (#1) 2024 08/06/2020 DEPRESSION SCREENING 09/27/2024 Respiratory Syncytial Virus (RSV) Vaccine Pt: or over 60 yrs (1 - 1-dose 75+ series) 12/03/2038 HEPATITIS B VACCINE Aged Out No longe r eligible based on patient's age to complete this topic HIB VACCINE Aged Out No longer eligi ble based on patient's age to complete this topic HPV VACCINE Aged Out No longer eligi ble based on patient's age to complete this topic MENINGOCOCCAL (Group B) VACCINE Aged Out No longer eligible b ased on patient's age to complete this topic MENINGOCOCCAL VACCINE Aged Out No ankur alix eligible based on patient's age to complete this topic PNEUMOCOCCAL VACCINE Aged Out No long er eligible based on patient's age to complete this topic Care Teams Bridge Saw Operator Relationship Specialty Start Date End Date Antoinette Hernandez MD [address] [place] [phone] PCP - General Family Medicine 09/21/16
--- OUTSIDE RECORDS SUMMARY | 2024-12-01 02:16 | XMS_ITS | Data Portability ---
Author Organization [place] [facility] [employer], Main Office Address [address] [place] [address] Care Team Providers Care Admissions Nurse Name Role Phone ANTONIO ARCEO Primary Care Provider ANTONIO ARCEO Referring Provider [phone] Assessment Encounter Date Assessment Date Assessment LastModified by Organization Details LastModified Time 04/06/2024 04/06/2024 This note is dictated and transcribed by [employer]. Research Laboratory Manager variances may occur. Despite proofreading, typographical errors may occur. Occasional wrong-word or 'rxdxn-x-vsto' substitutions may have occurred due to the inherent limitations of voice recording. Read the chart carefully and recognize, using context, where substitutions have occurred. Not available 04/06/2024 11:51:53 04/13/2024 04/13/2024 This note is dictated and transcribed by [employer]. Research Laboratory Manager variances may occur. Despite proofreading, typographical errors may occur. Occasional wrong-word or 'yuyed-j-reae' substitutions may have occurred due to the inherent limitations of voice recording. Read the chart carefully and recognize, using context, where substitutions have occurred. Not available 04/13/2024 11:31:15 07/28/2024 07/28/2024 I have reconciled the patient's medications post their discharge from inpatient facility. Not available 07/28/2024 10:57:18 Plan of Treatment Reminders Order Date Submit Date Provider Last Modified By Organization Details Last Modified Time Details Appointments Follow Up 30 2024 09:30A M Argentina Gilbert NP Not available Not available Not available Lab vitamin D3, 25-hydrox y, serum 2023 024 llalor Not available 05/08/2024 13:17:22 CBC w/ auto diff 2023 024 llalor Not available 05/08/2024 13:17:22 BMP, serum or plasma 2023 024 llalor Not available 05/08/2024 13:17:22 HbA1c (hemoglob in A1c), blood 2023 024 llalor Not available 05/08/2024 13:17:21 microalbu min, urine 2023 024 llalor Not available 05/08/2024 13:17:21 lipid panel, serum 2023 024 llalor Not available 05/08/2024 13:17:22 hepatic function panel, serum 2023 024 llalor Not available 05/08/2024 13:17:22 Referral None recorded. Procedures colonosco py screening (PROC) - Please call pt to schedule 2023 024 llalor Jeanne Webster MD, [address] [facility], [address], [place], [address], 10/09/2024 12:41:34 colonosco py screening (PROC) - Ralph already put in an order plus this one is over 6 months old 2023 024 [email or web address] Aaron Burciaga MD, [address] [facility] [place], [address], [place], [address], 11/08/2024 09:22:36 Surgeries None recorded. Imaging DEXA - *Please call pt to schedule* 2023 024 [email or web address] Not available 03/21/2024 12:36:07 Medication Orders doxycycli ne monohydra te 100 mg tablet 2023 024 [id number], [address], [place], [place], [id number], 04/13/2024 11:32:39 gentamici n 0.1 % topical cream 2023 [facility] #[id number], [address], [place], [place], [id number], 04/06/2024 11:53:25 doxycycli ne hyclate 100 mg capsule 2023 024 [email or web address] [facility] #[id number], [address], [place], [place], [id number], 04/06/2024 12:18:00 Trulicity 4.5 mg/0.5 mL subcutane ous pen injector 2023 024 [email or web address] [facility] #[id number], [address], [place], [place], [id number], 03/16/2024 11:16:56 Patient TargetsNo targets recorded. Patient Instructions Encounter Date Encounter Id Patient Instructions Last Modified By Organization Details Last Modified Time 04/06/2024 [id number] paronychia: care instructions Not available 04/10/2024 09:25:52 diabetes foot health: care instructions Not available 04/10/2024 09:25:52 04/13/2024 [id number] diabetes foot health: care instructions Not available 04/13/2024 11:32:34 07/28/2024 [id number] Thank you for your visit to our office today. We would like to request that you reach out to your referring or previous provider and request that they send us a Summary of Care in electronic form, so that we may have it on file in your medical record. At your visit, we had the medical records we needed to provide you with the best possible care; however, for insurance purposes, an electronic Summary of Care is beneficial. Thank you for your assistance in obtaining this information and we look forward to providing continued care to you. Please review your medication list from the Summary of Care for this visit. If there are any differences from what you are currently taking at home, please call us to discuss. [email or web address] Not available 07/28/2024 10:57:18 Homebound Status : {{Patient has an inability to leave the home without a taxing effort and assistance from another person Does not meet homebound status}} Required Home Health Services: {{none group home, physical therapy, occupational therapy group home, physical therapy group home}} Durable Medical Equipment needed: {{cane walker wal ker with seat manual wheelchair bedsid e commode oxygen}} Billing Guidelines CPT code 22422- Transitional Care Management services with moderate medical decision complexity (qjju-zl-bmrs visit within 14 days of discharge). CPT code 33196- Transitional Care Management services with high medical decision complexity (ugdo-cz-vmcy visit within 7 days of discharge). Not available 07/28/2024 10:57:18 Reason for Referral None Reported. Results Created Date Observation Date Name Description Value Unit Range Abnormal Flag Note LastModifiedBy Organization Detail LastModifiedTime 03/17/20 24 DEXA, axial skele ton [facility] [address] [address] Patien t Name: OLLEI PANG Access ion #: [id number] Sex: F : 1965 5 Dictat ed By: Johnny Lowe ms Attend ing Physic geena: SWATI ASENCIO [facility] geena: SWATI ASENCIO Exam Date: 2023 08:19 AM Exam Name: XR DEXA AXIAL/ HIP/PE LVIS/S LIZETH Admitt ing Diagno sis(es ): PROCED URE: DEXA SCAN INDICA TION: 58 years old, Female ; osteop enia. Postme nopaus al. TECHNI QUE: Bone densit ometry of the lumbar spine and bilate ral hips was perfor med on a [employer] c unit using dual energy x-ray absorp tiomet ry (DEXA) . COMPAR CAESAR: XR DEXA AXIAL/ HIP/PE LVIS/S LIZETH on 2020 BONE DENSIT Y REPORT : The supervisor laundry images are limite d for evalua tion of fine bony detail . BONE DENSIT Y REPORT : Bone minera l densit y (BMD) AP SPINE (L1-L4 ) BMD: 1.124 (Grams /cm2). T Score: -0.6 .9 LEFT FEMORA L NECK BMD: 0.719 (Grams /cm2). T Score: -1.9 z-scor e: -0.5 LEFT HIP TOTAL BMD: 0.843 (Grams /cm2). T Score: -1.3 z-scor e: -0.2 RT FEMORA L NECK BMD: 0.786 (Grams /cm2). T Score: -1.8 z-scor e: -0.4 RT HIP TOTAL BMD: 0.842 (Grams /cm2). T Score: -1.3 z-scor e: -0.2 TOTAL BILAT HIP AV.842 (Grams /cm2). T Score: -1.3 z-scor e: -0.2 Page 1 [facility] [address] [address] Patien t Name: OLLIE PANG Access ion #: [id number] Sex: F : 1965 5 Dictat ed By: Johnny Lowe ms Attend [facility] Physic geena: NESHA MCCALL [facility] Physic geena: SWATI ASENCIO Exam Date: 2023 08:19 AM Exam Name: XR DEXA AXIAL/ HIP/PE LVIS/S PINE Admitt ing Diagno sis(es ): 8 YEAR FRACTU RE RISK* Major osteop orotic fractu re not provid ed (less than 20% is consid ered low risk). Hip fractu re not provid ed (less than 3% is consid ered low risk). IMPRES MATTI: 1. Using the World Health Organi zation (WHO) classi ficati on, bone minera l densit y is: Osteop enia. ------ ------ ------ ------ ------ ------ ------ ------ ----- *FRAX versio n 3.08. Fractu re probab ility calcul ated for an untrea jael patien t. Fractu re probab ility may be lower if the patien t has receiv ed treatm ent. T-scor e: compar caesar by alfie carver (SD) to a young adult popula tion, matche d for sex and ethnic ity (used for postme nopaus al women and men >50 years) and classi fied by WHO criter ia. -1.0: normal <-1.0 to >-2.5: osteop enia -2.5: osteop orosis -2.5 plus fragil ity fractu re: severe osteop orosis Z-scor e: compar ed by SD to an age, sex, and ethnic ity popula tion (used for premen opausa l women, men <50 years, and childr en instea d of T-scor e WHO criter ia 4) <-2.0: below expect ed range/ low bone densit y for age, and a cause should be sought . All treatm ent decisi ons requir e clinic al judgme nt and consid eratio n of indivi dual patien t factor s, includ ing patien t prefer ences, comorb iditie s, previo us drug use and risk factor s not captur ed in the FRAX model (for exampl e vitami n D defici ency, falls, frailt y, increa sed bone turnov er, interv al signif icant declin e in BMD). Electr onical ly Signed by: Johnny Lowe ms at 2023 08:24: 14 AM Page 3 [email or web address] [facility] (Imaging) [address] [place], [address], 04/19/2024 14:39:42 10/23/1910/23/2024 US, liver No observ ation record ed. [email or web address] [address], [place], [address], 10/23/2024 14:44:16 10/23/19 25 10/23/2024 US, liver No observ ation record ed. [facility] [address], [place], [address], 10/23/2024 14:44:17 11/24/19 25 11/24/2024 MRI, liver , w/wo contr ast No observ ation record ed. [facility] [address], [place], [address], 11/27/2024 10:50:27 Result Notes None recorded. Problems Name Problem SNOMED Code Status Onset Date Resolution Date Notes Provider Name and Address Organization Details Recorded Time Abscess of tendon 155775645 Completed Not Available [facility] 3 01:26:13 Eruption 246408528 Completed Not Available [facility] 3 01:26:13 Hypertrig lyceridem ia 032340275 Active Not Available [facility] 4 04:07:35 Osteopeni a 403786166 Active 2018 Not Available [facility] 4 04:07:35 Type 2 diabetes mellitus without complicat ion 118980921 Active Not Available [facility] 4 04:07:35 Uncontrol led type 2 diabetes mellitus 376088377 Active 2021 Not Available [facility] 4 04:07:35 Hyperlipi demia 05885595 Active Not Available [facility] 4 04:07:35 Essential hypertens ion 41973346 Active Not Available [facility] 4 04:07:35 Rhinitis 96462830 Active Not Available [facility] 4 04:07:35 COVID-19 925744588 Active 2020 Not Available [facility] 4 04:07:35 Vitamin D deficienc y 30662683 Active 2023 Antonio Arceo MD [address] [facility] [address], [address], [place], [address] , [place] [facility] 4 10:35:30 Acute sinusitis 21692537 Active 2023 Antonio Arceo MD [address], [address], [place], [address] , [facility] 4 10:37:41 Type 2 diabetes mellitus 89663253 Active 2023 CALVIN Vargas [address], [address], [place], [address] , [facility] 4 08:14:40 Ingrowing toenail 597774868 Active 2023 Daryl Hopkins DPM [address], [address], [place], [address] , [facility] 4 11:51:59 Seasonal allergy 704476813 Active 2023 Priyanka davalos, [facility] 4 12:19:08 Anemia 475588385 Active 2023 Priyanka davalos, [facility] 4 12:19:15 Pneumonia 339554653 Active 2023 CALVIN Vargas [address], [address], [place], [address] , [facility] 4 10:42:43 Liver enzymes level above reference range 909493437 Active 2023 CALVIN Armando [address], [address], [place], [address] , [facility] 4 11:51:51 Ultrasono graphy of liver abnormal 28754755533 466406 Active 2024 CALVIN Armando [address], [address], [place], [address] , [facility] 5 12:27:19 Notes:FEMALE PROBLEMS/INFECT IONS Problem Notes None recorded. Procedures Surgical History Date Name Laterality Status Provider Name and Address Organization Details Recorded Time 07/28/20 24 Transitional_Car e_Management completed CALVIN Vargas [address], [address], [place], [address], [facility] [employer] [facility] 07/28/2024 10:57:39 04/13/20 Nail Debridement completed Daryl Hopkins DPM [address], [place], [address], [facility] [employer] [facility] 04/13/2024 11:30:50 04/06/20 24 Toenail avulsion completed Daryl Hopkins DPM [address], [place], [address], [facility] [employer] [facility] 04/06/2024 11:52:34 Hysterectomy completed Not Available [facility] 11/25/2022 01:12:49 completed Not Available [facility] 0 11/25/2022 01:12:49 Remove tonsils and adenoids completed Not Available [facility] 11/25/2022 01:12:49 Imaging Results Imaging Date Name Status LastModified by Organiz ation Details LastModified Time 03/17/2024 DEXA, axial skeleton completed [email or web address] [facility] ([facility]) [address], [place], [address], 04/19/2024 14:39:42 10/23/2024 US, liver completed [facility] [address], [place], [address], 10/23/2024 14:44:16 10/23/2024 US, liver completed llalor [facility] [address], [place], [address], 10/23/2024 14:44:17 11/24/2024 MRI, liver, w/wo contrast completed [facility] [address], [place], [address], 11/27/2024 10:50:27 Procedure Notes None recorded. Medical Equipment None Reported. Allergies Allergen ID Allergen Name Allergen Category Reaction Reaction Severity Criticality Documentation Date Start Date Code Code System Note Provider Name and Address Organization Details Recorded Time 2906 Product containin g penicilli n (product) medicatio n hives mild Not available 11/25/2022 81207 [id number] SNOMED Not Available [facility] 3 01:42:03 Medications Name Sig Start Date Stop Date Status Note LastModified by Organization Details LastModified Time doxycycline hyclate 100 mg capsule TAKE 1 CAPSULE BY MOUTH TWICE DAILY FOR 7 DAYS active Not Available Not Available No t Available atorvastati n 10 mg tablet Take 1 tablet every day by oral route at bedtime. active Not Available Not Available No t Available lisinopril 20 mg-hydrochl orothiazide 12.5 mg tablet TAKE 1 TABLET BY MOUTH TWICE DAILY active Not Available Not Available No t Available azithromyci n 250 mg tablet TAKE 2 TABLETS (500 MG) BY ORAL ROUTE ONCE DAILY FOR 1 DAY THEN 1 TABLET (250 MG) BY ORAL ROUTE ONCE DAILY FOR 4 DAYS 03/06 completed Not Available Not Available Not Available cefpodoxime 100 mg tablet TAKE 1 TABLET BY MOUTH TWICE DAILY active Not Available Not Available No t Available ofloxacin 0.3 % eye drops active Not Available Not Available Not Available benzonatate 200 mg capsule 08/06 completed Not Available Not Available Not Available Celestone Soluspan 6 mg/mL suspension for injection active Not Available Not Available No t Available prednisone 20 mg tablet TAKE 2 TABLETS BY MOUTH EVERY DAY FOR 5 DAYS 01/16 completed Not Available Not Available Not Available alendronate 70 mg tablet TAKE 1 TABLET BY MOUTH EVERY WEEK active Not Available Not Available No t Available clindamycin HCl 150 mg capsule 10/12 completed Not Available Not Available Not Available sulfamethox azole 800 mg-trimetho prim 160 mg tablet Take 1 tablet every 12 hours by oral route. active Not Available Not Available No t Available doxycycline monohydrate 100 mg tablet TAKE 1 TABLET BY MOUTH TWICE DAILY FOR 7 DAYS DIRECTED active Not Available Not Available No t Available benzonatate 100 mg capsule TAKE 1 CAPSULE BY MOUTH EVERY 8 HOURS NEEDED. MAY TAKE 1-2 CAPSULES NEEDED 3 TIMES DAILY 10/28 completed Not Available Not Available Not Available gentamicin 0.1 % topical cream APPLY A SMALL AMOUNT TO THE AFFECTED AREA OF GREAT TOE THREE TIMES DAILY active Not Available Not Available No t Available methylpredn isolone 4 mg tablets in a dose pack FOLLOW PACKAGE DIRECTION S active Not Available Not Available No t Available albuterol sulfate HFA 90 mcg/actuati on aerosol inhaler INHALE 2 PUFFS BY MOUTH EVERY 4 HOURS NEEDED 10/28 completed Not Available Not Available Not Available fluticasone propionate 50 mcg/actuati on nasal spray,suspe nsion SHAKE LIQUID AND USE 2 SPRAYS IN EACH NOSTRIL DAILY 04/06 completed Not Available Not Available Not Available metformin ER 500 mg tablet,exte nded release 24 hr TAKE 1 TABLET BY MOUTH EVERY MORNING AND 3 TABLETS EVERY EVENING active Not Available Not Available No t Available doxycycline hyclate 100 mg tablet TAKE 1 TABLET BY MOUTH EVERY 12 HOURS FOR 5 DAYS active Not Available Not Available No t Available Rocephin 500 mg solution for injection active Not Available Not Available No t Available Microlet Lancet U BID 04/06 completed Not Available Not Available Not Available ciprofloxac in 0.3 %-dexametha sone 0.1 % ear drops,suspe nsion SHAKE LIQUID AND INSTILL 4 DROPS TO AFFECTED EAR TWICE DAILY FOR 10 DAYS 10/28 completed Not Available Not Available Not Available metformin ER 500 mg tablet,exte nded release 24hr (osmotic) 1 tab po q am and 3 tab po q pm 01/18 completed Not Available Not Available Not Available multivitami n 1 daily 2015 active Not Available Not Available Not Avai lable Januvia 100 mg tablet TAKE 1 TABLET BY MOUTH EVERY DAY active Not Available Not Available No t Available calcium 600 mg (as carbonate)- vitamin D3 10 mcg (400 unit) tablet TAKE 1 TABLET BY MOUTH EVERY DAY active Not Available Not Available No t Available Suprep Bowel Prep Kit 17.5 gram-3.13 gram-1.6 gram oral solution 04/04 completed Not Available Not Available Not Available Contour Next Test Strips Take 1 strip twice a day by miscell. route for 90 days. 04/15 completed Not Available Not Available Not Available Bydureon 2 mg/0.65 mL subcutaneou s pen injector Inject 1 injector every week by subcutane ous route for 30 days. active Not Available Not Available No t Available True Metrix Glucose Meter USE DIRECTED 04/06 completed Not Available Not Available Not Available Trulicity 1.5 mg/0.5 mL subcutaneou s pen injector ADMINISTE R 1.5 MG UNDER THE SKIN EVERY WEEK 03/17 completed Not Available Not Available Not Available Trulicity 0.75 mg/0.5 mL subcutaneou s pen injector INJECT 0.75 MG SC Q WEEK. 08/01 completed Not Available Not Available Not Available Flucelvax Quad (PF) 60 mcg (15 mcg x 4)/0.5 mL IM syringe active Not Available Not Available N ot Available Trulicity 3 mg/0.5 mL subcutaneou s pen injector ADMINISTE R 3 MG UNDER THE SKIN EVERY WEEK 01/16 completed Not Available Not Available Not Available Trulicity 4.5 mg/0.5 mL subcutaneou s pen injector INJECT 4.5MG UNDER THE SKIN ONCE A WEEK active Not Available Not Available No t Available Vitals Date Recorded Body height Body mass index (BMI) Body weight Body temperature Heart rate Oxygen saturation Oxygen saturation in Arterial blood by Pulse oximetry Systolic blood pressure Diastolic blood pressure Provider Name and Address Organization Details Last Updated DateTime 4 152.4 cm 25.1 kg/m2 82464.9 7 g 97.6 [degF] 104 /min 99 % 99 % 139 mm[Hg] 74 mm[Hg] Latanya Murray MA [facility] 4 10:15:08 Date Recorded Body height Heart rate Systolic blood pressure Diastolic blood pressure Provider Name and Address Organization Details Last Updated DateTime 04/06/2024 152.4 cm 102 /min 153 mm[Hg] 83 mm[Hg] Sabina Beckwith CNA [facility] 04/06/2024 10:32:20 Date Recorded Body mass index (BMI) Body weight Provider Name and Address Organization Details Last Updated DateTime 04/06/2024 25.4 kg/m2 34596.01 g Priyanka Veras [email or web address] 04/06/2024 12:17:40 Date Recorded Body height Body mass index (BMI) Body weight Heart rate Respiratory rate Body temperature Systolic blood pressure Diastolic blood pressure Provider Name and Address Organization Details Last Updated DateTime 4 152.4 cm 25.4 kg/m2 61543.0 1 g 96 /min 14 /min 98.6 [degF] 150 mm[Hg] 80 mm[Hg] Lanie Rush MA [place] [facility] 4 10:34:07 Date Recorded Body height Body mass index (BMI) Body weight Body temperature Heart rate Oxygen saturation Oxygen saturation in Arterial blood by Pulse oximetry Systolic blood pressure Diastolic blood pressure Provider Name and Address Organization Details Last Updated DateTime 4 152.4 cm 24.8 kg/m2 80755.2 3 g 96.8 [degF] 102 /min 99 % 99 % 134 mm[Hg] 76 mm[Hg] Abimbola Castillo RN [place] [employer] 4 10:24:12 Social History Question Answer Notes LastModified by [employer] Details LastModified Time Tobacco Smoking Status Never Smoker Sadia Александр davalos [employer] 05/19/2023 09:53:07 What Is Your Level Of Alcohol Consumption? None [id number] Information not available 11/25/2022 What Is Your Level Of Caffeine Consumption? Moderate [id number] Information not available 11/25/2022 How Much Tobacco Do You Chew? None [id number] Information not available 11/25/2022 Which Illicit Or Recreational Drugs Have You Used? 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 01/17/2024 [email or web address] Information not available 01/17/2024 Sex: Unknown Functional Status Question Answer Note LastModified by [employer] Details LastModified Time What is your exercise level? Moderate [id number] Information not available 11/25/2022 Mental Status None recorded. Family History Relationship Description Onset Age of this Age Resolved Age Notes LastModified by Organization Details LastModified Time Father Heart disease [id number] Not available 11/25/2022 01:12:57 Father Diabetes mellitus [id number] Not available 11/25/2022 01:12:57 Father Hypertensive disorder [id number] Not available 11/25/2022 01:12:57 Father Cerebrovascu lar accident [email or web address] Not available 09:53:06 Father Malignant tumor of lung [email or web address] Not available 2022 09:53:06 Father Arthritis Not availabl e 05/19/2023 09:53:06 Maternal Grandfather Myocardial infarction [id number] Not available 11/25/2022 01:12:57 Mother Malignant lymphoma cll [email or web address] Not available 2022 09:53:06 Sister Diabetes mellitus [email or web address] Not available 2023 12:19:53 Medical History Condition Response CARDIAC ARRHYTHMIA Y ANEMIA/BLOOD DISORDER Y DIABETES, TYPE Y ALLERGIES/HAYFEVER Y FEMALE PROBLEMS / INFECTIONS Y HYPERTENSION Y Gynecological HistoryNo gynecological history recorded. Obstetrics History GPAL:G 0 P 0 0 0 0 Immunizations Vaccine Type Date Status Note Provider Nam e and Address Organization Details Recorded Time Influenza, split virus, trivalent, PF 4 completed Abimbola Castillo RN null, [place] [facility] 07/28/2024 11:06:10 COVID-19, mRNA, LNP-S, PF, 30 mcg/0.3 mL dose 1 completed Not Available [facility] 10/09/2023 04:07:36 COVID-19, mRNA, LNP-S, PF, 30 mcg/0.3 mL dose 1 completed Not Available [facility] 10/09/2023 04:07:36 Influenza, split virus, quadrivalent, preservative 0 completed Not Available [facility] 10/09/2023 04:07:36 Influenza, split virus, quadrivalent, PF 1 completed Not Available [facility] 10/09/2023 04:07:36 pneumococcal polysaccharide PPV23 0 completed Not Available [facility] 10/09/2023 04:07:36 zoster recombinant 0 completed Not Available [facility] 10/09/2023 04:07:36 zoster recombinant 9 completed Not Available [facility] 10/09/2023 04:07:36 MMR 9 completed Not Available [facility] 10/09/2023 04:07:36 Tdap 6 completed Not Available [facility] 10/09/2023 04:07:36 Past Encounters Encounter ID Performer Location Encounter Start Date Encounter Closed Date Diagnosis/Indication Diagnosis SNOMED-CT Code Diagnosis ICD10 Code Diagnosis Note [id number] [facility] Cristel tyler [address] [place] [address] 01/08/2021 00:00:00 01/08/2021 10:59:14 [id number] [facility] Cristel tyler [address] [place] [address] 07/28/2021 00:00:00 07/28/2021 10:51:17 [id number] [facility] Cristel llvictor manuel [address] [place] [address] 03/16/2022 00:00:00 03/16/2022 10:40:28 [id number] [facility] [place] [address] [facility] [address] [place] [address] 10/28/2022 00:00:00 10/28/2022 10:36:44 [id number] [facility] [place] [address] [facility] [facility] [address] [place] [address] 11/19/2022 00:00:00 11/19/2022 12:16:23 [id number] Antonio Arceo MD [facility] [place] [address] [facility] [facility] [address] [place] [address] 05/19/2023 09:51:58 05/19/2023 10:21:37 Essential hypertension 61786244 I10 stable Type 2 arielle betes mellitus without complication 391374582 E11.9 diabetic eye exam done hec k a1c, if not at goal increase trulicity to 4.5 mg sc qweek [id number] Antonio Arceo MD [facility] [place] [address] [facility] [address] [place] [address] 01/17/2024 09:55:10 01/17/2024 10:47:02 Adult health examination 407825998 Z00.00 has completed shingrix series p neumovax 23 done 2019, will repeat at age 63flu vaccine yearlyTdap done 2016Covid booster per cdc recommenda tionsmammo gram done in 10/[address] GargDEX A 2020 osteopenia , repeat orderedcol onoscopy referral givencheck fasting labs in 3 monthsRSV vaccine recommende d Osteopenia 391950156 M85 .80 daily walkingcal cium + D bidrepeat DEXA orderedost eopenia in 2020 Screening for malignant neoplasm of colon 006723893 Z12.11 per pt report last done at age 53 and was told 5 year repeat Essential hypertension 20272172 I10 stable Hyperlipidemia 77237822 E78.5 Type 2 arielle betes mellitus without complication 878413872 E11.9 diabetic eye exam done 04/2023not at [facility] trulicity to 4.5 mg sc qweekrepea t labs in 3 months Vitamin D deficiency 347 16808 E55.9 Acute sinusitis 11457626 J01.90 will hold and fill if no improvemen t by end of the week [id number] Daryl Hopkins DPM [facility] [place] [address] [place] [address] 04/06/2024 10:26:42 04/11/2024 12:35:04 Ingrowing toenail 100714644 L60.0 partial nail avulsion performedd ressings and wound care reviewedmo nitor for worsening signs of infection at present seek medical attention immediatel yFollow-up in 1 week Type 2 arielle betes mellitus 60441912 E11.9 Continue diabetic control per PCP recommenda tionsfollo w-up 3 months for diabetic foot care [id number] Daryl Hopkins DPM [facility] [place] [address] [place] [address] 04/13/2024 10:23:52 04/13/2024 14:55:20 Ingrowing toenail 593645328 L60.0 partial nail avulsion performedd ressings and wound care reviewedmo nitor for worsening signs of infection at present seek medical attention immediatel yFollow-up in 1 week Type 2 arielle betes mellitus 33383498 E11.9 Continue diabetic control per PCP recommenda tionsfollo w-up 3 months for diabetic foot care [id number] CALVIN Vargas [facility] [address] [employer] [facility] [address] [facility] [place] [address] 07/28/2024 10:11:54 07/28/2024 11:02:16 Pneumonia 720455253 J18.9 f/u with [facility], dx with pneumoniag iven IV fluids/ant ibioticsd/ c with oral antibiotic s, completeds ome weakness and fatigue lungs CTA Administra tion of influenza vaccine 28714792 Z23 Screening for malignant neoplasm of colon 474296303 Z12.11 Transition of care 72628 26923 105 Z75.8 d/c on 07/16back to [facility] [id number] CALVIN Armando [facility] Primary Care [facility] [address] [facility] [address] [facility] [facility] [address] 08/23/2024 10:23:00 08/23/2024 10:43:50 Health Concerns Section Related Observation LastModified by Organization Detai ls LastModified Time None Recorded Concern Status LastModified by Organization Details LastModified Time None Recorded Advance Directives Directive None Recorded Payers Encounter Date Sequence Insurance Name Policy Number Policy Shannon Covered Member ID Shannon Member ID Guarantor Name 01/17/2024 1 [place]) 113 Cora Pang [id number] Cora Pang 04/06/2024 1 [place] 113 Cora Pang [id number] Cora Pang 04/13/2024 1 [place] 113 Cora Pang [id number] Cora Pang 07/28/2024 1 [place] 113 Cora Pang [id number] Cora Pang 08/23/2024 1 [place] 113 Cora Pang [id number] Cora Pang Notes Date Note Type Note Provider Name and Address Organization Details Recorded Time 01/17/2024 text/html no home blood sugars for review started with sick symptoms yesterday-rhinorrh ea, sinus congestion, no cough, no wheezing, she is prone to sinusitis and was exposed to sick children last week Antonio Arceo MD [address], [place] [address], [place], [address], [employer] 02/13/2024 16:30:01 04/06/2024 text/html . Patient is 58-year-old female type 2 diabetic with an ingrown toenail. Patient states the toenail has been causing her increased pain with walking and pressure. Patient denies any redness or drainage. Patient denies any fever, chills, nausea or vomiting. Patient states when she is walking she has sharp pain to pressure. Patient denies any other complaints. Daryl Hopkins DPM [address], [place] [address], [place], [address], [employer] 04/10/2024 09:26:50 04/13/2024 text/html . Patient is a 58-year-old female she returns for partial Nail avulsion follow-up. Patient overall is doing well she has some mild inflammation to the area she states that it is not painful she denies any fever, chills, nausea or vomiting. Patient states she has had some mild drainage to the area. Patient states she continues wound care with antibiotic ointment I recommend she continue to do this until it is healed. Daryl Hopkins DPM [address], [place] [address], [place], [address], [employer] 04/13/2024 11:33:20 07/28/2024 text/html pt is here for hospital f/u CALVIN Vargas [address], [place] [address], [place], [address], [employer] 07/28/2024 11:01:36 OBGyn Episode No OBEpisode recorded.
--- OUTSIDE RECORDS SUMMARY | 2024-12-01 02:16 | XMS_ITS | Patient Health Summary ---
Author Organization [facility] Address [address] [place] [address] Care Team Providers Care Oracle Adf Developer Name Role Phone Antoinette Hernandez MD Primary Care Provider Note from [facility],non-owned Affiliates and Associated Physician Practices is amultiple site organization consisting of ambulatory clinics and hospital sitesin [place], [place], [place] and [place]. This disclosure is being madepursuant to the Care Everywhere program and may not contain all information available regarding this patient. Last updated 18.[facility] [employer] Allergies * Penicillins Medications * Be aware that medications may not be up to date on this document. Alwaysverify current medications with the patient. * METFORMIN HCL ER, MOD, PO * SITagliptin Phosphate (JANUVIA PO) * LISINOPRIL PO * dulaglutide (TRULICITY) 1.5 MG/0.5ML injection Inject 1.5 mg subcutaneously every 7 days * atorvastatin (LIPITOR) 10 MG tablet Take 10 mg by mouth at bedtime Immunizations * Covid Pfizer primary monovalent 12+ yr 0.3mL Purple cap(Given 11/15/2020, 10/28/2020) Social History Tobacco Use Types Packs/Day Years Used Date Smoking Tobacco: Never Smokeless Tobacco: Never Sex and Gender Information Value Date Recorded Sex Assigned at Not on file Gender Identity Not on file Sexual Orientation Not on file Last Filed Vital Signs Vital Sign Reading Time Taken Comments Blood Pressure 138/72 10/26/2019 11:30 AM [employer] Pulse 96 10/26/2019 11:30 AM [employer] Temperature 36.7 C (98.1 F) 10/26/2019 11:30 AM [employer] Respiratory Rate 16 10/26/2019 11:30 AM [employer] Oxygen Saturation 96% 10/26/2019 11:30 AM [employer] Inhaled Oxygen Concentration - - Weight 59 kg (130 lb) 10/26/2019 11:30 AM [employer] Height 152.4 cm (5') 10/26/2019 11:30 AM [employer] Body Mass Index 25.39 10/26/2019 11:30 AM [employer] Care Teams Oracle Adf Developer Relationship Specialty Start Date End Date Antoinette Hernandez MD [address] [place] [phone] PCP - General Family Medicine 09/21/16
[2024-12-01 09:49] LABS: Glucose Point of Care 204 mg/dl (65-105)
[2024-12-01 09:51] VITALS: BP 112/57; PULSE 100; RESP 16; TEMP 36.1; O2SAT 100; BMI 24.2
[2024-12-01] MEDS: LACTATED RINGERS 1,000 ML 150 ML IV CONT (10:07)
--- NOTE | 2024-12-01 10:45 | P.PNAN_ITS ---
Anes - Initial Pre Proc Eval Procedure: Operation Date: 12/01/24 10:30 Proposed Procedures p Screening Colonoscopy - Del Magallanes MD Date/Time: 12/01/24 10:45 Surgeon: Del Magallanes MD Pre Op Diagnosis: screening Patient Data Age: 58 Gender: F Height: 1.52 m Weight: 56.3 kg Last Vital Signs Temp 97.0 F L 12/01/24 09:51 Pulse 100 12/01/24 09:51 Resp 16 12/01/24 09:51 BP 112/57 L 12/01/24 09:51 Pulse Ox 100 12/01/24 09:51 O2 Del Method Room Air 12/01/24 09:51 Allergies Allergy/AdvReac Type Severity Reaction Status Date / Time Penicillins Allergy Mild HIVES Verified 12/01/24 09:49 Home Medications ?Medication ?Instructions ?Recorded ?Confirmed ?Type atorvastatin 10 mg tablet 10 mg PO HS 03/02/22 12/01/24 History dulaglutide 1.5 mg/0.5 mL 1.5 mg subcut WEEKLY 03/02/22 12/01/24 History subcutaneous pen injector (Trulicity) lisinopril 20 1 tablet PO BID 03/02/22 12/01/24 History mg-hydrochlorothiazide 12.5 mg tablet sitagliptin phosphate 25 mg tablet 25 mg PO DAILY 06/16/23 12/01/24 History (Januvia) alendronate 70 mg tablet 70 mg PO WEEKLY 07/14/24 12/01/24 History calcium 600 mg (as 1 tablet PO DAILY 07/14/24 12/01/24 History carbonate)-vitamin D3 10 mcg (400 unit) tablet metformin 500 mg tablet,extended 1,500 mg PO QACDINNER 07/14/24 12/01/24 History release 24 hr multivit with minerals-iron 18 1 tablet PO DAILY 07/14/24 12/01/24 History mg-folic ac 400 mcg-vit K 25 mcg tablet (Adults Multivitamin) Laboratory Tests 12/01/24 09:46 POC Capillary Glucose 204 H mg/dl (65-105) Patient hx anesthesia problems: none Family hx anesthesia problems: none Results Review: All pre-operative results and documents have been reviewed as part of the pre- operative evaluation. [facility] Past Medical History Medical History Dyslipidemia Type 2 diabetes mellitus Heart murmur Anemia Hypertension Osteopenia Surgical History Surgical History History of hysterectomy, supracervical abdominal (subtotal) (05/16/09) abdominal supracx hyst w/LSO--leiomyomata, adenomyosis History of dilation and curettage 03/12/09 dx hscope/d&c--menorrhagia, uterine leiomyomata History of x2 1986&1987 Family History Family History Father Heart disease Diabetes mellitus Hypertension Cerebrovascular accident Malignant neoplasm of lung Grandparent Acute myocardial infarction maternal grandfather Mother Malignant lymphoma Social History Social History Social History: Surrogate medical decision maker: Yassine Pang, spouse. Code status: Full code. Smoking status: Never smoker Second hand tobacco smoke exposure: No Alcohol intake: never Substance use: never Substance use type: does not use Do You Feel Safe in your Home?: Yes Lack of Transportation: No Lack of Food: Never True Current Housing: I Have Housing Concerned About Future Housing: No Difficulty Paying Gas/Electric Bills: No Difficulty Paying for Meds: No Currently Unemployed: No Education: High School Diploma/GED Difficulty w/ Childcare or Family Care: No Living arrangements: with family Additional living arrangements comments: Occupation/Education: retired Gender identity (if verbalized by the patient): Female Sexual Orientation (if Verbalized by the Patient): Straight or Heterosexual Spiritual care concerns: No Anes - Eval Final PreProcedure Day of Procedure 12/01/24 10:45 Patient weight: overweight Lungs: normal air movement Airway: Mallampati scale class II Neurological: alert and oriented Last oral intake: >/= 8 hours ASA classification: III Emergent: no Anesthetic plan: proceed Anesthesia type and monitoring: general GIVS and standard monitoring Results Review: All pre-operative results and documents have been reviewed as part of the pre- operative evaluation. HTN, hyperlipidemia, FSBS 204. Active w babysitting, no cp or sob, 1-2 fos without limitation. Informed Consent: The patient's anesthetic plan and its attendant risks and benefits were discussed with the patient/family/POA. Questions were solicited and answers provided to the satisfaction of the patient/family/POA.
--- NOTE | 2024-12-01 10:54 | PM.IMHP ---
H&P: HPI History of Present Illness Date/Time: 12/01/24 10:54 Chief Complaint: History of colon polyps Narrative: The patient has a history of colonic polyps, the last colonoscopy was 5 years ago. Review of Systems Review of Systems: All systems reviewed & are unremarkable except as noted in HPI and below PMFSH Past Medical History Medical History Dyslipidemia Type 2 diabetes mellitus Heart murmur Anemia Hypertension Osteopenia Surgical History Surgical History History of hysterectomy, supracervical abdominal (subtotal) (05/16/09) abdominal supracx hyst w/LSO--leiomyomata, adenomyosis History of dilation and curettage 03/12/09 dx hscope/d&c--menorrhagia, uterine leiomyomata History of x2 1986&1987 Family History Family History Father Heart disease Diabetes mellitus Hypertension Cerebrovascular accident Malignant neoplasm of lung Grandparent Acute myocardial infarction maternal grandfather Mother Malignant lymphoma Social History Social History Social History: Surrogate medical decision maker: Yassine Pang, spouse. Code status: Full code. Smoking status: Never smoker Second hand tobacco smoke exposure: No Alcohol intake: never Substance use: never Substance use type: does not use Do You Feel Safe in your Home?: Yes Lack of Transportation: No Lack of Food: Never True Current Housing: I Have Housing Concerned About Future Housing: No Difficulty Paying Gas/Electric Bills: No Difficulty Paying for Meds: No Currently Unemployed: No Education: High School Diploma/GED Difficulty w/ Childcare or Family Care: No Living arrangements: with family Additional living arrangements comments: Occupation/Education: retired Gender identity (if verbalized by the patient): Female Sexual Orientation (if Verbalized by the Patient): Straight or Heterosexual Spiritual care concerns: No Meds Home Medications and Allergies Home Medications ?Medication ?Instructions ?Recorded ?Confirmed ?Type atorvastatin 10 mg tablet 10 mg PO HS 03/02/22 12/01/24 History dulaglutide 1.5 mg/0.5 mL 1.5 mg subcut WEEKLY 03/02/22 12/01/24 History subcutaneous pen injector (Trulicity) lisinopril 20 1 tablet PO BID 03/02/22 12/01/24 History mg-hydrochlorothiazide 12.5 mg tablet sitagliptin phosphate 25 mg tablet 25 mg PO DAILY 06/16/23 12/01/24 History (Januvia) alendronate 70 mg tablet 70 mg PO WEEKLY 07/14/24 12/01/24 History calcium 600 mg (as 1 tablet PO DAILY 07/14/24 12/01/24 History carbonate)-vitamin D3 10 mcg (400 unit) tablet metformin 500 mg tablet,extended 1,500 mg PO QACDINNER 07/14/24 12/01/24 History release 24 hr multivit with minerals-iron 18 1 tablet PO DAILY 07/14/24 12/01/24 History mg-folic ac 400 mcg-vit K 25 mcg tablet (Adults Multivitamin) Allergies Allergy/AdvReac Type Severity Reaction Status Date / Time Penicillins Allergy Mild HIVES Verified 12/01/24 09:49 Vital Signs Vital Signs - 24 hr 12/01/24 09:51 Temperature 97.0 F L Pulse Rate 100 Respiratory Rate 16 Blood Pressure 112/57 L Pulse Oximetry 100 Oxygen Delivery Room Air Exam Const: General: cooperative and healthy appearing Resp: Effort & Inspection: normal respiratory effort and able to speak in complete sentences Auscultation: clear to auscultation bilaterally Cardio: Rate: regular rate Rhythm: regular rhythm GI: Inspection: normal to inspection GI Palp: No No hepatosplenomegaly present Auscultation: normal bowel sounds Rectal Exam: deferred Skin: General skin exam: normal color Psych: Appearance: grossly normal Mental Status: mental status grossly normal Assessment and Plan Assessment and plan (1) History of colonic polyps: Code(s): Z86.0100 - Personal history of colon polyps, unspecified Status: Acute Assessment and Plan: The patient is deemed a good candidate for the procedure. Consent signed. Will proceed.
[2024-12-01 11:22] VITALS: BP 78/47; PULSE 97; RESP 21; O2SAT 96
[2024-12-01 11:32] VITALS: BP 83/48; PULSE 96; RESP 20; O2SAT 97
[2024-12-01 11:42] VITALS: BP 98/58; PULSE 92; RESP 18; O2SAT 98
== END 2024-12-01 11:58 | disposition home or self-care (01) ==
PROVIDERS: PCP Nurse Practitioner Family; Referring Provider Nurse Practitioner Family; Visit Provider Internal Medicine Gastroenterology
PROC: 0DJD8ZZ Inspection of Lower Intestinal Tract, Via Natural or Artificial Opening Endoscopic (ICD-10-PCS; CPT 45378; principal; 2024-12-01 10:30)
DX: Z12.11 Encounter for screening for malignant neoplasm of colon (principal); D12.4 Benign neoplasm of descending colon; D12.5 Benign neoplasm of sigmoid colon; K63.5 Polyp of colon; E78.5 Hyperlipidemia, unspecified; E11.9 Type 2 diabetes mellitus without complications; D64.9 Anemia, unspecified; I10 Essential (primary) hypertension; M85.88 Other specified disorders of bone density and structure, other site; R01.1 Cardiac murmur, unspecified; Z79.85 Long-term (current) use of injectable non-insulin antidiabetic drugs; Z79.84 Long term (current) use of oral hypoglycemic drugs; Z79.83 Long term (current) use of bisphosphonates; Z98.890 Other specified postprocedural states; Z80.1 Family history of malignant neoplasm of trachea, bronchus and lung; Z80.7 Family history of other malignant neoplasms of lymphoid, hematopoietic and related tissues; Z82.49 Family history of ischemic heart disease and other diseases of the circulatory system
CPT/HCPCS: 45385; 82948; 88305; J2003; J2704; J7120

== ENCOUNTER 2025-01-17 10:38 | Outpatient (CLI) | payer BC, SELFPAY ==
--- NOTE | ~2025-01-17 | MM_ITS ---
EXAMINATION: MM screening kale BI w jimmy HISTORY: Screening TECHNIQUE: Craniocaudal and mediolateral oblique 3-D tomosynthesis images were obtained and synthetic 2-D images were generated. CAD analysis was submitted and interpreted. COMPARISON: No prior mammogram is available for comparison at this institution. BREAST PARENCHYMAL COMPOSITION: Dense: The breasts are heterogeneously dense, which may obscure small masses FINDINGS: There are asymmetries centered in the upper inner quadrant of the right breast, middle thir d. There is no mammographic evidence for malignancy in the left breast. IMPRESSION: 1. Right breast asymmetries. 2. Additional mammographic views and possible breast ultrasound are recommended. BI-RADS Category 0: Incomplete: Needs additional imaging evaluation. Reviewed, dictated and finalized at location A. IMPRESSION: 1. Right breast asymmetries. 2. Additional mammographic views and possible breast ultrasound are recommended . BI-RADS Category 0: Incomplete: Needs additional imaging evaluation.
== END 2025-01-17 10:39 | disposition home or self-care (01) ==
LOC: MICIMG 10:38
PROVIDERS: PCP Nurse Practitioner Family; Visit Provider Obstetrics & Gynecology
DX: Z12.31 Encounter for screening mammogram for malignant neoplasm of breast (principal); N64.89 Other specified disorders of breast
CPT/HCPCS: 77063; 77067

== ENCOUNTER 2025-02-12 08:39 | Outpatient (CLI) | payer BC, SELFPAY ==
--- NOTE | ~2025-02-12 | MM_ITS ---
EXAMINATION: MM diagnostic kale RT w jimmy HISTORY: Follow-up right breast asymmetry TECHNIQUE: Additional 3-D tomosynthesis images of the right breast were performed and synthetic 2-D i mages were generated. CAD analysis was submitted and interpreted. COMPARISON: Comparison to multiple prior studies sequentially, with oldest reviewed study dated 03/23. BREAST PARENCHYMAL COMPOSITION: Dense: The breasts are heterogeneously dense, which may obscure small masses FINDINGS: Focal asymmetry in the upper inner quadrant of the right breast is less dense with spot com pression views, compatible with superimposed glandular tissue. No suspicious masses, calcifications o r architectural distortion are identified. IMPRESSION: 1. No evidence for malignancy in the right breast. 2. Routine yearly screening mammogram and regular clinical breast examination are recommended. BI-RADS Category 1: Negative Reviewed, dictated and finalized at location B. IMPRESSION: 1. No evidence for malignancy in the right breast. 2. Routine yearly screening mammogram and regular clinical breast examination a re recommended. BI-RADS Category 1: Negative
== END 2025-02-12 08:40 | disposition home or self-care (01) ==
LOC: MICIMG 08:39
PROVIDERS: PCP Nurse Practitioner Family; Visit Provider Obstetrics & Gynecology
DX: N64.89 Other specified disorders of breast (principal)
CPT/HCPCS: 77061; 77065; G0279